=== PATIENT | male | born 1990 | race Caucasian/White ===

== ENCOUNTER 2016-08-08 23:09 | Emergency (ER) | payer OTHER ==
[~2016-08-08] VITALS: Ht 170.2 cm; Wt 77.0 kg
[2016-08-09] MEDS ORDERED: LIDOCAINE HCL BUFFERED 1% 20 ML VIAL INJ ONE (02:00)
[2016-08-09] MEDS ORDERED: PERTUSS(ACELL),DIPH,TET VAC/PF 0.5 ML VIAL IM ONE (02:00)
[2016-08-09 03:37] VITALS: BP 134/68
== END 2016-08-09 03:39 | disposition home or self-care (01) ==
LOC: EMS 23:16
DX: S01.511A Laceration without foreign body of lip, initial encounter (principal); Y08.89XA Assault by other specified means, initial encounter; Y93.89 Activity, other specified; Y99.8 Other external cause status; Y92.89 Other specified places as the place of occurrence of the external cause
CPT/HCPCS: 12013; 90471; 90715; 99283; J3490

== ENCOUNTER 2021-03-07 19:47 | Emergency (ER) | payer MEDICARE, OTHER ==
[~2021-03-07] VITALS: Ht 167.6 cm; Wt 81.0 kg
[2021-03-07 20:01] VITALS: BP 140/70
[2021-03-07] MEDS: PROPARACAINE HCL 0.5% 15 ML OPHTHALMIC SOLUTION OD ONE (21:50)
[2021-03-07] MEDS: FLUORESCEIN SODIUM 1 MG STRIP OD ONE (21:50)
[2021-03-07] MEDS: POLYMYXIN B/TRIMETHOPRIM 10 ML OPHTHALMIC SOLUTION OD ONE (21:50)
== END 2021-03-07 22:00 | disposition home or self-care (01) ==
LOC: EMS 19:48
DX: H10.31 Unspecified acute conjunctivitis, right eye (principal)
CPT/HCPCS: 99283; 99284

== ENCOUNTER 2022-06-02 20:50 | Emergency (ER) | payer OTHER ==
[~2022-06-02] VITALS: Ht 167.6 cm; Wt 75.0 kg
[2022-06-02] MEDS ORDERED: BACITRACIN/POLYMYXIN B 3.5 GM OPHTHALMIC OINTMENT OD ONE (22:45)
[2022-06-02] MEDS ORDERED: SULFACETAMIDE SODIUM 10% 15 ML OPHTHALMIC SOLUTION OD ONE (22:45)
[2022-06-02] MEDS ORDERED: PROPARACAINE HCL 0.5% 15 ML OPHTHALMIC SOLUTION OD ONE (22:45)
[2022-06-02] MEDS ORDERED: FLUORESCEIN SODIUM 1 MG STRIP ONE (23:12)
[2022-06-03 00:10] VITALS: BP 110/58
== END 2022-06-03 00:13 | disposition home or self-care (01) ==
LOC: EMS 20:52
DX: H10.9 Unspecified conjunctivitis (principal); F84.0 Autistic disorder
CPT/HCPCS: 99283

== ENCOUNTER 2024-02-01 19:08 | Emergency (ER) | payer OTHER ==
[~2024-02-01] VITALS: Ht 165.1 cm; Wt 85.9 kg
[2024-02-01 19:19] VITALS: TEMP 99.3
[2024-02-01] MEDS: ACETAMINOPHEN 500 MG TABLET PO ONE (20:19)
[2024-02-01] MEDS: IBUPROFEN 400 MG TABLET PO ONE (20:19)
[2024-02-01 22:21] LABS: COVID AG,FIA SOURCE NASAL SWAB
[2024-02-01 22:50] LABS: SARS-COV2 (COVID) ANTIGEN,FIA Negative (Negative)
[2024-02-01 22:55] LABS: INFLUENZA TYPE A NEGATIVE FOR TYPE A (NEGATIVE); INFLUENZA TYPE B NEGATIVE FOR TYPE B (NEGATIVE)
[2024-02-01] MEDS ORDERED: IBUP-1492 PO (23:05)
[2024-02-01 23:15] VITALS: BP 125/69; PULSE 80; RESP 16; O2SAT 98
== END 2024-02-01 23:17 | disposition home or self-care (01) ==
LOC: EMS 19:08
DX: R51.9 Headache, unspecified (principal); R50.9 Fever, unspecified; F84.0 Autistic disorder; Z20.822 Contact with and (suspected) exposure to COVID-19
CPT/HCPCS: 87804; 99283